=== PATIENT | female | born 1965 | race Caucasian/White ===

== ENCOUNTER 2018-11-03 15:57 | Emergency (ER) | payer BC, OTHER ==
[2018-11-03 16:46] LABS: ANION GAP 9 (5-13); BLOOD UREA NITROGEN 16 mg/dl (7-20); CALCIUM 8.9 mg/dl (8.4-10.2); CARBON DIOXIDE 23 mmol/L (21-31); CHLORIDE 103 mmol/L (97-110); CREATININE 0.86 mg/dl (0.44-1.00); Estimated GFR > 60 mL/min (>60); GLUCOSE 108 mg/dl (70-220); POTASSIUM 4.4 mmol/L (3.5-5.1); SODIUM 135 mmol/L (135-144)
== END 2018-11-03 17:10 | disposition home or self-care (01) ==
LOC: E/R 15:57
DX: Z00.00 Encounter for general adult medical examination without abnormal findings (principal)
CPT/HCPCS: 80048; 99283

== ENCOUNTER 2018-11-25 13:55 | Day surgery (SDC) | payer BC ==
[2018-11-25] MEDS ORDERED: MIDAZOLAM 1 MG/ML 2 ML INJ ×3 (16:42→16:43)
[2018-11-25] MEDS ORDERED: FENTAnyl 50 MCG/ML VIAL (16:42)
== END 2018-11-25 17:42 | disposition home or self-care (01) ==
LOC: GIL 13:55
DX: Z12.11 Encounter for screening for malignant neoplasm of colon (principal); K64.8 Other hemorrhoids
CPT/HCPCS: 45378